=== PATIENT | male | born 1940 | race Caucasian/White ===

== ENCOUNTER → 2021-03-12 | Outpatient (CLI) | payer MEDICARE ==
--- NOTE | 2021-03-12 17:58 | RAD ---
EXAM: PA and Lateral Views of the Chest DATE: 03/12/2021 5:25 PM INDICATION: Reason: FEVER / Spl. Instructions: / History: COMPARISON: No Prior FINDINGS: The heart is not enlarged. Aortic calcifications are seen. Mediastinal and hilar contours are normal. Patchy bilateral peripheral and left greater than right lung base airspace opacities. No pleural effusion or pneumothorax. IMPRESSION: Bilateral parenchymal airspace opacities possibly atelectasis or developing consolidation. Electronically signed by: Bradley Rosario MD (03/12/2021 5:55 PM) [facility]
== END ==
LOC: DXRAD 17:18
PROVIDERS: ATTEND Nurse Practitioner Family
DX: R91.8 Other nonspecific abnormal finding of lung field (principal); I70.0 Atherosclerosis of aorta
CPT/HCPCS: 71046

== ENCOUNTER → 2021-03-19 | Outpatient (CLI) | payer MEDICARE ==
--- NOTE | 2021-03-19 11:11 | RAD ---
XR CHEST 2V History: Reason: CONGESTION / Spl. Instructions: / History: Comparison: March 12, 2021 Findings: Mild diffuse reticular interstitial thickening, similar compared to prior. No pleural effusion. No pn eumothorax. Unchanged heart size. Impression: 1. Mild diffuse reticular interstitial thickening, may relate to chronic interstitial changes althou gh superimposed pulmonary edema is possible. Electronically signed by: Walt Vargas DO (03/19/2021 11:09 AM) [id number]
== END ==
LOC: RAD 10:26
PROVIDERS: ATTEND Nurse Practitioner Family
DX: J84.89 Other specified interstitial pulmonary diseases (principal)
CPT/HCPCS: 71046

== ENCOUNTER 2021-03-23 10:11 | Emergency (ER) | payer MEDICARE ==
[~2021-03-23] VITALS: Ht 177.8 cm; Wt 78.7 kg
--- NOTE | 2021-03-23 11:34 | PHYS DOC ---
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 Patient states "I went for a follow-up with my PCP today and she heard crackles in my lungs and wanted me to have another chest x-ray". Patient has had 2 rounds of antibiotics and is currently taking levofloxacin. Patient is also been taking prednisone along with breathing treatments at home. Patient denies shortness of breath, fever. Patient denies any complaints at this time. Patient is fully vaccinated for COVID-19. (MARQUIS JACOBSON APRN) Review of Systems: Review of Systems: Constitutional: Denies fever or chills Eyes: Denies change in visual acuity HENT: Denies nasal congestion or sore throat Respiratory: Denies cough or shortness of breath Cardiovascular: Denies chest pain or edema GI: Denies abdominal pain, nausea, vomiting, bloody stools or diarrhea : Denies dysuria Musculoskeletal: Denies back pain or joint pain Integument: Denies rash Neurologic: Denies headache, focal weakness or sensory changes Endocrine: Denies polyuria or polydipsia Lymphatic: Denies swollen glands Psychiatric: Denies depression or anxiety (MARQUIS JACOBSON APRN) Allergies: Allergies: Allergies Coded Allergies Type Severity Reaction Last Updated Verified polyethylene glycol 3350 Allergy Severe hives 03/23/21 Yes lisinopril Adverse Reaction Mild cough 03/23/21 Yes (MARQUIS JACOBSON APRN) Physical Exam: PE: Constitutional: Well developed, well nourished, no acute distress, non-toxic appearance. [] HENT: Normocephalic, atraumatic, bilateral external ears normal, oropharynx moist, no oral exudates, nose normal. [] Eyes: PERRLA, EOMI, conjunctiva normal, no discharge. [] Neck: Normal range of motion, no tenderness, supple, no stridor. [] Cardiovascular:Heart rate regular rhythm, no murmur [] Lungs & Thorax: Crackles, bilateral lower lobes Abdomen: Bowel sounds normal, soft, no tenderness, no masses, no pulsatile masses. [] Skin: Warm, dry, no erythema, no rash. [] Back: No tenderness, no CVA tenderness. [] Extremities: No tenderness, no cyanosis, no clubbing, ROM intact, no edema. [] Neurologic: Alert and oriented X 3, normal motor function, normal sensory function, no focal deficits noted. [] Psychologic: Affect normal, judgement normal, mood normal. [] (MARQUIS JACOBSON APRN) Current Patient Data: Vital Signs: Vital Signs Date Time Temp Pulse Resp B/P (MAP) Pulse Ox O2 Delivery O2 Flow Rate FiO2 03/23/21 10:22 97.5 82 18 142/80 (100) 97 Room Air (MARQUIS JACOBSON APRN) EKG: EKG: [] (MARQUIS JACOBSON APRN) Radiology/Procedures: Radiology/Procedures: []Chest, PA and Lateral: Technique: PA and lateral views of the chest were obtained. History: Shortness of breath, pneumonia. Comparison: 03/19/2021. Findings: The heart and pulmonary vasculature appear within normal limits. Mild bibasilar lung airspace opacities.. Mild prominent reticular interstitial lung markings bilateral lungs.. Moderate degenerative changes thoracic spine. Impression: Mild bibasilar lung airspace opacities could be atelectasis or infiltrates. Electronically signed by: Stephen Cisneros MD (03/23/2021 11:35 AM) [id number] (MARQUIS JACOBSON APRN) Heart Score: C/O Chest Pain: No Risk Factors: Risk Factors: DM, Current or recent (<one month) smoker, HTN, HLP, family history of CAD, obesity. Risk Scores: Score 0 - 3: 2.5% MACE over next 6 weeks - Discharge Home Score 4 - 6: 20.3% MACE over next 6 weeks - Admit for Clinical Observation Score 7 - 10: 72.7% MACE over next 6 weeks - Early Invasive Strategies (MARQUIS JACOBSON APRN) Course & Med Decision Making: Course & Med Decision Making Pertinent Labs and Imaging studies reviewed. (See chart for details) [] 80-year-old male presents for follow-up chest x-ray per PCP. Chest x-ray is unremarkable. Patient denies all complaints. Patient is hemodynamically stable upon disposition. Discussed return precautions in length. Patient verbalized he understood discharge instructions. Advised patient to follow-up with PCP. (MARQUIS JACOBSON APRN) Faby Disclaimer: Faby Disclaimer: This electronic medical record was generated, in whole or in part, using a voice recognition dictation system. (MARQUIS JACOBSON APRN) Attending Co-Sign The patient was seen and interviewed as well as examined at the bedside. The chart was reviewed. The case was discussed. Agree with the plan of care. (HIWOT TUTTLE DO) Departure Departure: Impression: Primary Impression: Pneumonia Qualified Codes: J18.9 - Pneumonia, unspecified organism Disposition: HOME / SELF CARE / HOMELESS Condition: STABLE Referrals: DESTINEE SPAIN (PCP) Patient Instructions: Pneumonia, Adult Additional Instructions: You were seen in the emergency room for follow-up chest x-ray after pneumonia. Make sure you continue taking your antibiotics as directed and using breathing treatments at home. Please follow-up with your PCP if you start running a fever or symptoms return. Return to the emergency room if you have increasing shortness of breath or worsening symptoms. EMERGENCY DEPARTMENT GENERAL DISCHARGE INSTRUCTIONS Thank you for coming to [facility] (ED) today and trusting us with you care. We trust that you had a positivie experience in our Emergency Department. If you wish to speak to the department management, you may call the director at [phone]. YOUR FOLLOW UP INSTRUCTIONS ARE FOLLOWS: 1. Do you have a private Doctor? If you do not have a private doctor, please ask for a resource list of physicians or clinics that may be able to assist you with follow up care. 2. The Emergency Physician has interpreted your x-rays. The X-Ray specialist will also review them. If there is a change in the findings, you will be notified in 48 hours when at all possible. 3. A lab test or culture has been done, your results will be reviewed and you will be notified if you need a change in treatment. ADDITIONAL INSTRUCTIONS AND INFORMATION: 1. Your care today has been supervised by a physician who is specially trained in emergency care. Many problems require more than one evaluation for a complete diagnosis and treatment. We recommend that you schedule your follow up appointment as recommended to ensure complete treatment of you illness or injury. If you are unable to obtain follow up care and continue to have a problem, or if your condition worsens, we recommend that you return to the ED. 2. We are not able to safely determine your condition over the phone nor are we able to give sound medical advice over the phone. For these safety reasons, if you call for medical advice we will ask you to come to the ED for further evaluation. 3. If you have any questions regarding these discharge instructions please call the ED at [phone]. SAFETY INFORMATION: In the interest of safety, wellness, and injury prevention; we encourage you to wear your sealbelt, if you smoke; quite smoking, and we encourage family to use a protective helmet for bicycling and other sporting events that present an increased risk for head injury. IF YOUR SYMPTOMS WORSEN OR NEW SYMPTOMS DEVELOP, OR YOU HAVE CONCERNS ABOUT YOUR CONDITION; OR IF YOUR CONDITION WORSENS WHILE YOU ARE WAITING FOR YOUR FOLLOW UP APPOINTMENT; EITHER CONTACT YOUR PRIMARY CARE DOCTOR, THE PHYSICIAN WHOSE NAME AND NUMBER YOU WERE GIVEN, OR RETURN TO THE ED IMMEDIATELY. MARQUIS JACOBSON APRN Mar 23, 2021 11:34 HIWOT TUTTLE DO Mar 25, 2021 10:17
--- NOTE | 2021-03-23 11:37 | RAD ---
Chest, PA and Lateral: Technique: PA and lateral views of the chest were obtained. History: Shortness of breath, pneumonia. Comparison: 03/19/2021. Findings: The heart and pulmonary vasculature appear within normal limits. Mild bibasilar lung airspace opacit ies.. Mild prominent reticular interstitial lung markings bilateral lungs.. Moderate degenerative ch anges thoracic spine. Impression: Mild bibasilar lung airspace opacities could be atelectasis or infiltrates. Electronically signed by: Stephen Cisneros MD (03/23/2021 11:35 AM) [place] [id number]
[2021-03-23 12:21] VITALS: BP 136/71
== END 2021-03-23 12:21 | disposition home or self-care (01) ==
LOC: ER 10:11
DX: J18.9 Pneumonia, unspecified organism (principal)
CPT/HCPCS: 71046; 99283-25

== ENCOUNTER → 2021-04-19 | Outpatient (CLI) | payer MEDICARE ==
[2021-03-23 12:21] VITALS: BP 136/71
--- NOTE | 2021-04-19 17:27 | RAD ---
EXAM: XR CHEST 2V 04/19/2021 1:09 PM CLINICAL INDICATION: Follow-up pneumonia COMPARISON: Chest radiograph 03/23/2021 TECHNIQUE: PA and lateral views of the chest FINDINGS: The heart is normal in size. Lungs are mildly hypoexpanded. There chronic appearing diffus e interstitial opacities, greatest in the lung peripheries. There is a 7 mm nodular opacity in the le ft lung base that may be new. No pleural effusion or pneumothorax. There is no acute osseous abnormal ity. IMPRESSION: 1. Possible new 7 mm nodular opacity in the left lung base. Recommend short interval follow-up radiog raph to ensure resolution versus CT to further evaluate. 2. Bilateral interstitial opacities are unchanged and may be sequela of pneumonia or interstitial shamar g disease. Electronically signed by: Nisa Murguia MD (04/19/2021 5:25 PM) [id number]
== END ==
LOC: RAD 13:03
PROVIDERS: ATTEND Nurse Practitioner Family
DX: R91.8 Other nonspecific abnormal finding of lung field (principal); J18.9 Pneumonia, unspecified organism
CPT/HCPCS: 71046